=== PATIENT | male | born 1965 | race Caucasian/White ===

== ENCOUNTER → 2018-05-12 | Outpatient (CLI) | payer OTHER, MEDICARE, BC ==
[2018-05-12 13:56] LABS: HEMATOCRIT 45.7 % (42.0-52.0); HEMOGLOBIN 15.5 g/dl (13.5-17.5); MEAN CORPUSCULAR HEMOGLOBIN 30.6 pg (27.0-33.0); MEAN CORPUSCULAR HGB CONC 33.9 g/dl (32.0-36.5); MEAN CORPUSCULAR VOLUME 90.1 fl (80.0-96.0); PLATELET COUNT, AUTOMATED 209 10^3/uL (150-450); RED BLOOD COUNT 5.07 10^6/uL (4.30-6.10); RED CELL DISTRIBUTION WIDTH 12.7 % (11.5-14.5); WHITE BLOOD COUNT 10.5 10^3/uL (4.0-10.0)
[2018-05-14 00:08] LABS: TESTOSTERONE FREE (DIRECT) 8.2 pg/mL (7.2-24.0)
== END ==
LOC: M SMT 08:39
DX: Z12.5 Encounter for screening for malignant neoplasm of prostate (principal)
CPT/HCPCS: 84403

== ENCOUNTER → 2019-04-15 | Outpatient (CLI) | payer OTHER, BC ==
[~2019-04-15] MED LIST: LEVA750T; PERC5TAB8; VICO5TAB
[2019-04-15 13:24] LABS: HEMATOCRIT 51.5 % (42.0-52.0); HEMOGLOBIN 17.3 g/dl (13.5-17.5)
[2019-04-17 00:08] LABS: TESTOSTERONE FREE (DIRECT) 13.3 pg/mL (7.2-24.0)
== END ==
LOC: M SMT 12:05
PROVIDERS: ATTEND Nurse Practitioner Family
DX: E29.1 Testicular hypofunction (principal)
CPT/HCPCS: 36415; 84402; 84403; 85014; 85018; G0103